=== PATIENT | male | born 2000 | race Caucasian/White ===

== ENCOUNTER 2024-07-11 18:42 | Emergency (ER) | payer OTHER, SELFPAY ==
[2024-07-11 18:44] VITALS: BP 172/123
[2024-07-11 19:02] VITALS: BMI 33.9
--- NOTE | 2024-07-11 19:11 | ED.GENMED ---
History of Present Illness
General
Chief Complaint: Seizure
Source: patient
Exam Limitations: none
Time Seen by Provider: 07/11/24 18:49
Nursing documentation reviewed up to this point in time: agreed with
History of Present Illness
History of Present Illness:
24 y/o M with h/o alcohol abuse
usually drinks a fifth of vodka daily
last drink was 3 days ago, by choice
pt says he has been using his fathers gabapentin to try to curbside withdrawal symptoms
he had nausea/vmoiting the first 24 hours but says he hasn't thrown up today or had any belly pain
he actually feels better today than he had felt
however whil ein the parking lot after being in the grocery store, he doesn't remember what happened, and woke up to a bunch of people outside his car making a commotion
he sped off and drove home and told his dad he prob had a seizure
dad drove back to the grocery store and confirmed with staff that his son was in his car and looked to be having a seizure, so they called for help but pt woke up and left before help arrived
pt is here c/o miostly L shoulder pain
he didn't bite his tongue or become incontinent
he denies other drug use
he admits to quitting drinking cold turkey
he has not had any seizures unrelated to alcohol withdrawal
denies headache
feels mildly anxious
doesn' twant counseling or detox
Past History
Past History
ED Past Medical History: Asthma (Mild, rare) and Other (Mandible fracture September 2017)
ED Past Surgical History: Other (Mandible fracture repair September 2017)
Social History
Tobacco: Former smoker
Alcohol: Binge drinker
Drug: None
Personal: Single
Living: with family
Employment: Student
Family History
Family History: Other (Noncontributory)
Review of Systems
Review of Systems
Allergies reviewed?: Yes
All Other Systems: Not applicable
Phy Exam
Physical Exam
Physical Exam:
GENERAL: Alert , mildly anxious, mildly agitated;
HEAD: NCAT
EYE: pupils equal and reactive, no nystagmus, no photophobia
NECK: Supple,full rom, nontender
ENT: o/p clr, mmm.
small abrasion R lateral tonuge
CARDIAC: Regular rate and rhythm . no edema
LUNGS: Clear breath sounds bilaterally, no acute respiratory distress, no wheezes/rales/rhonchi
ABDOMEN: Soft, without focal tenderness, no r/g, no cvat
NEUROLOGICAL: Alert and orientedx 4, cn intact, no facial asymmetry, 5/5 strength in UE/LE, sensation intact, romberg neg, ambulates without assistance, neg pronator drift
SKIN: Warm and dry, skin intact. no diaphoresis
MUSCULOSKELETAL: No edema, well perfused.
shoulder nontender
full painless ROM
PSYCH: slightly anxious, a little irritable
Scores
Withdrawal Assessment of Alcohol
Withdrawal Assessment Completed?: Yes
Nausea and Vomiting: Mild nausea with no vomiting
Tactile Disturbances: Very mild itching, pins and needles, burning or numbness
Tremor: Moderate, with patient's arms extended
Auditory Disturbances: Not present
Paroxysmal Sweats: No sweat visible
Visual Disturbances: Not present
Anxiety: Mild anxiety
Headache, Fullness in Head: Not present
Agitation: Moderately fidgety and restless
Orientation and clouding of sensorium: Oriented and can do serial additions
Total CIWA Score: 11
Alcohol Withdrawal Medication Recommendation: Equal to MSAS Score 5-7. Lorazepam 1mg IV or PO NOW & re-assess q2hrs
Course
Orders/Labs/Results
Orders:
Orders
07/11/24 19:03
0.9% Sodium Chloride 1000 ml [Nss] 1,000 ml IV BOLUS
Lorazepam [Ativan] 1 mg IV NOW STA
07/11/24 19:04
Shoulder, Left, Trauma CR [CR Shoulder, Trauma - Left] Urgent
Comment:
Reason For Exam: left shoulder pain, seizure
07/11/24 19:06
Electrocardiogram (*1) Urgent
Reason for Study: Syncope
Bedside Glucose- Treatment ONCE
EKG- Treatment ONCE
07/11/24 19:20
Alcohol Urgent
Complete Blood Count/With Diff Urgent
Comprehensive Metabolic Panel Urgent
Lipase Urgent
07/11/24 21:16
Oxazepam [Serax] 30 mg PO NOW STA
Abnormal Lab Results
07/11/24 07/11/24
19:15 19:20
RBC 4.65 L 10^6/uL
(4.70-6.10)
MCH 32.0 H pg
(27.0-31.0)
Absolute Lymphs (auto) 0.9 L 10^3/uL
(1.2-3.4)
Absolute Monos (auto) 0.8 H 10^3/uL
(0.1-0.6)
Immature Gran % 0.6 H %
(0-0.5)
Lymphocytes % 18.1 L %
(20.5-51.1)
Monocytes % 16.3 H %
(1.7-9.3)
Sodium 133 L mmol/L
(135-145)
Glucose 153 H mg/dl
(70-99)
Total Bilirubin 1.5 H mg/dl
(0.2-1.3)
AST 118 H U/L
(17-59)
ALT 78 H U/L
(0-50)
Lipase 374 H U/L
(23-300)
POC Glucose 151 H mg/dl
(70-99)
07/11/24 19:20
07/11/24 19:20
Vital Signs
Initial and Last Documented VS:
Initial Vital Signs
Temp Pulse Resp BP Pulse Ox
36.7 C 114 16 172/123 95
07/11/24 18:44 07/11/24 18:44 07/11/24 18:44 07/11/24 18:44 07/11/24 18:44
Last Documented Vital Signs
Temp Pulse Resp BP Pulse Ox
36.8 C 81 19 136/92 97
07/11/24 21:06 07/11/24 21:54 07/11/24 21:54 07/11/24 21:54 07/11/24 21:54
MDM/Problems Addressed
Differential Diagnosis Includes:
alcohol withdrawal seizure , drug abue, epilepsy
MDM/Problems Addressed:
24 y/o M
daily alcohol use
fifth of vodka
last used 2.5 days ago
quit cold turkey, tried using gabapentin to helpw ith symptoms
n/v resolved
no abd pain
felt ok today until he went to grocery store and then was found to be possibly seizing in his car; he woke up and drove home, he wasn't really aware of what happened
he has had 1 previous alcohol withdrawal seizure before
he is not on keppra
pt is mildly anxious
withdrawal score 11 initially
but quickly down to 1 or 2 after 1 dose ativan
hr and bp improved
labs reviewed
d/w ed attending
pt does not wish to be admitted despite multiple attempts to convince him
he also declines b cares
he does not want to drink any longer though
decided t prescribe serax taper becuase it would be best that he safely try to use meds rather than continue cold turkey
he probably will not need all 4 days
return preautions given
dad will watch him
[facility] [employer] form faxed
*Critical Care Note
Total Time (30-74mins, 75-104mins- exclusive of procedures): Not Applicable
ED Attending Note
-
Portions of this chart may have been created with voice recognition software.� Occasional wrong word or��sound alike� substitutions may have occurred due to the inherent limitations of voice recognition software.
Discharge Plan
Departure
Patient Disposition: Home (Routine Discharge)
Date of Disposition: 07/11/24
Time of Disposition: 21:52
Patient with high blood pressure during this ER visit?: Yes
Condition: Fair
Discharge Problem:
Alcohol withdrawal seizure
Instructions: Alcohol use disorder - ED discharge instructions
Prescriptions:
New
oxazepam 15 mg capsule
See Rx Instructions .ROUTE .COMPLEX Qty: 18 0RF
Rx Instructions:
30 MG PO Q6HRS prn ALCOHOL WITHDRAWAL DAY 1, THEN 15 MG PO Q6 HOURS DAY 2 AND 3, THEN 15 MG PO BID DAY 4 IF NEEDED
Referrals:
UNKNOWN - PT DOES,NOT KNOW [Family Provider] -
Activity Restrictions/Additional Instructions:
You had an alcohol withdrawal seizure. We offered you admission but you have declined. You should use Serax as instructed:
We gave you 30 mg tonight
Starting tomorrow you can take 30 mg (that is 2 tablets) every 6 hours, that is 4 times in a day on day 1 as needed for anxiety/alcohol withdrawal symptoms
On day 2 you can take 15 mg (that is 1 tablet) every 6 hours, that is 4 times a day on days 2 and 3 as needed for anxiety or alcohol withdrawal symptoms.
On day 4 you can do 1 tablet twice a day as needed for alcohol withdrawal symptoms.
If you feel like you do not need as much is this you can use less
Do not use more
Return for repeated seizure activity, or any concerns.
your liver enzymes are elevated
please try to stop drinking
Interventions
Interventions:
*Risk Screen - Suicide Last Done: 07/11/24 18:44
*General Assessment Last Done: 07/11/24 19:06
*Neglect/Abuse Screening Last Done: 07/11/24 18:44
*ED- Fall Risk Assessment Last Done: 07/11/24 19:06
*ED COVID-19 Vaccine History Last Done: 07/11/24 19:22
*Nursing Disposition Last Done: 07/11/24 21:59
ED- Cardiac Assessment Last Done: 07/11/24 19:02
ED- Neurological Assessment Last Done: 07/11/24 19:02
ED- Pulmonary Assessment Last Done: 07/11/24 19:02
Discharge Date and Time
Discharge Date/Time: 07/11/24 22:03
Print Language: OCCITAN
[2024-07-11 19:17] LABS: Glucose - Point of Care 151 mg/dl (70-99)
[2024-07-11] MEDS: NSS 1000 IV (19:20)
[2024-07-11] MEDS: ATIVAN 1 MG IV (19:20)
[2024-07-11 19:29] LABS: % Eosinophils 1.6 % (0-6); % Immature Granulocytes 0.6 % (0-0.5); % Lymphocytes 18.1 % (20.5-51.1); % Monocytes 16.3 % (1.7-9.3); % Neutrophils 62.4 % (42.2-75.2); Absolute Basophils 0.1 10^3/uL (0-0.2); Absolute Eosinophils 0.1 10^3/uL (0-0.7); Absolute Lymphocytes 0.9 10^3/uL (1.2-3.4); Absolute Monocytes 0.8 10^3/uL (0.1-0.6); Absolute Neutrophils 3.1 10^3/uL (1.4-6.5); Hematocrit 42.2 % (39.0-52.0); Hemoglobin 14.9 g/dL (13.0-18.0); Mean Corp Hgb Conc. 35.3 g/dL (33.0-37.0); Mean Corpuscular Volume 90.8 fL (80.0-94.0); Mean Platelet Volume 9.4 fL (7.4-10.4); Nucleated Red Blood Cells % 0 % (-); Platelet Count 176 10^3/uL (130-400); Red Blood Cell Count 4.65 10^6/uL (4.70-6.10); Red Cell Dist. Width 12.2 % (11.5-14.5); White Blood Cell Count 4.9 10^3/uL (4.8-10.8)
[2024-07-11 19:51] LABS: ALT (SGPT) 78 U/L (0-50); AST (SGOT) 118 U/L (17-59); Albumin 4.7 g/dl (3.5-5.0); Alcohol None Detected; Alkaline Phosphatase 45 U/L (38-126); Blood Urea Nitrogen 9 mg/dl (9-20); Calcium 10.1 mg/dl (8.4-10.2); Carbon Dioxide 25 mmol/L (22-30); Chloride 100 mmol/L (98-107); Estimated Creatinine Clearance > 125 ml/min; Glucose 153 mg/dl (70-99); Lipase 374 U/L (23-300); Potassium 3.9 mmol/L (3.5-5.1); Sodium 133 mmol/L (135-145); Total Bilirubin 1.5 mg/dl (0.2-1.3); Total Protein 7.3 g/dl (6.3-8.2); eGFR > 60.00
[2024-07-11 20:22] VITALS: BP 148/98
[2024-07-11 21:06] VITALS: BP 144/100
[2024-07-11] MEDS: SERAX 30 MG PO (21:26)
[2024-07-11 21:54] VITALS: BP 136/92
== END 2024-07-11 22:03 | disposition home or self-care (01) ==
LOC: EMR 18:42
PROVIDERS: Physician Assistant; EMERGENCY PHYSICIAN Emergency Medicine
DX: F10.139 Alcohol abuse with withdrawal, unspecified (principal); R56.9 Unspecified convulsions; M25.512 Pain in left shoulder; J45.909 Unspecified asthma, uncomplicated; Z87.891 Personal history of nicotine dependence
CPT/HCPCS: 96374; 96361; 99284; 73030; 80053; 82077; 82962; 83690; 85025; 93005